=== PATIENT | female | born 1995 | race African-American/Black ===

== ENCOUNTER 2020-07-22 10:57 | Emergency (ER) | payer OTHER, SELFPAY ==
--- NOTE | ~2020-07-22 | XR_ITS ---
EXAMINATION: XR ankle LT min 3V EXAM DATE: 07/22/2020 11:28 INDICATION: Initial encounter following injury, with pain of the left ankle. TECHNIQUE: Left ankle frontal, lateral and oblique projections obtained and reviewed. There is no pr ior study for comparison. FINDINGS: The left ankle mortise appears intact. There are no acute fractures or dislocations ident ified. There is no subcutaneous gas. The soft tissue is unremarkable. There are no radiopaque for eign bodies. IMPRESSION: No acute osseous findings. Reviewed, dictated and finalized at location B. IMPRESSION: No acute osseous findings.
[2020-07-22 11:04] VITALS: BP 125/79; PULSE 85; RESP 16; O2SAT 100
--- NOTE | 2020-07-22 11:22 | ED.GENADULT ---
HPI - General Adult General Chief complaint: Extremity Injury, Lower Stated complaint: L ANKLE INJURY Time Seen by Provider: 07/22/20 11:07 Source: patient Limitations: no limitations History of Present Illness HPI narrative: Patient is a 25 y/o female complaining of left ankle pain after a fall. She states that she was pulled down by her dog. She describes her pain as sharp with no radiation. She states that movement and weight bearing aggravates her pain. She denies hitting her head. She has no other injury. She has no neck pain, back pain, chest pain or abdominal pain. Review of Systems Constitutional: Constitutional: Denies chills, Denies fever(s), Denies headache(s) and Denies weakness Eyes: Eyes: Denies blurry vision ENT: Denies headache(s) and Denies neck pain Cardiovascular: Cardiovascular: Denies chest pain and Denies dyspnea Respiratory: Respiratory: Denies cough and Denies dyspnea Gastrointestinal: Gastrointestinal: Denies abdominal pain, Denies diarrhea, Denies nausea and Denies vomiting Genitourinary: Genitourinary: Denies hematuria and Denies dysuria Musculoskeletal: Musculoskeletal: Denies back pain, Reports arthralgias (left ankle pain) and Denies neck pain Neurologic: Denies headache(s) and Denies weakness Exam Const: General: no acute distress and well developed Orientation/consciousness: oriented to person, oriented to place, oriented to time and patient oriented x3 Eyes: General: appearance normal, both eyes and all related structures Conjunctivae: conjunctivae normal Neck: Neck: normal visual inspection and full ROM GI: GI Palp: No abdominal tenderness and Yes Soft to palpation Neuro: General: oriented to person, oriented to place, oriented to time and patient oriented x3 Cognition (Neuro): normal cognition Extrem: General: normal to inspection, full ROM and no pedal edema Left lower extremity: ankle Details: tenderness Location: of the medial malleolus Psych: Appearance: grossly normal Mental Status: mental status grossly normal Affect: normal affect Course Vital Signs Vital signs: Vital Signs Pulse Rate 85 07/22/20 11:04 Respiratory Rate 16 07/22/20 11:04 Blood Pressure 125/79 07/22/20 11:04 Pulse Oximetry 100 07/22/20 11:04 Pulse Rate 85 07/22/20 11:04 Respiratory Rate 16 07/22/20 11:04 Blood Pressure 125/79 07/22/20 11:04 Pulse Oximetry 100 07/22/20 11:04 Medical Decision Making Vital Signs Vital Signs: Vital Signs Pulse Rate 85 07/22/20 11:04 Respiratory Rate 16 07/22/20 11:04 Blood Pressure 125/79 07/22/20 11:04 Pulse Oximetry 100 07/22/20 11:04 Pulse Rate 85 07/22/20 11:04 Respiratory Rate 16 07/22/20 11:04 Blood Pressure 125/79 07/22/20 11:04 Pulse Oximetry 100 07/22/20 11:04 Discharge Plan Discharge Clinical Impression: Left ankle sprain Qualifiers: Encounter type: initial encounter Involved ligament of ankle: unspecified ligament Qualified Code(s): S93.402A - Sprain of unspecified ligament of left ankle, initial encounter Patient Disposition: Home, Self-Care Condition: Stable Instructions: Ankle Sprain (ED) Follow-up/Referrals: Arlet,Jorgito Tapia MD [Primary Care Provider] -
== END 2020-07-22 12:09 | disposition home or self-care (01) ==
PROVIDERS: Emergency Provider Emergency Medicine; PCP Emergency Medicine
DX: S93.402A Sprain of unspecified ligament of left ankle, initial encounter (principal); W54.8XXA Other contact with dog, initial encounter; Y93.K1 Activity, walking an animal
CPT/HCPCS: 73610; 99283